=== PATIENT | female | born 1950 | race Asian ===

== ENCOUNTER 2023-05-14 06:08 | Day surgery (SDC) | payer MEDICARE, OTHER ==
[~2023-05-14] VITALS: Ht 157.5 cm; Wt 63.6 kg
[2023-05-14] MEDS ORDERED: FLUMAZENIL 0.1 MG/ML 5 ML VIAL IVP ONE (07:22)
[2023-05-14] MEDS ORDERED: SODIUM TETRADECYL SULFATE 3% 60 MG/2 ML VIAL IVP ONE (07:22)
[2023-05-14] MEDS ORDERED: EPINEPHrine 1:10,000 [1 MG/10 ML] SYRINGE ONE (07:22)
[2023-05-14] MEDS ORDERED: NALOXONE HCL 0.4 MG/ML VIAL ONE (07:22)
[2023-05-14] MEDS ORDERED: DiphenhydrAMINE HCL 50 MG/ML VIAL ONE (07:22)
[2023-05-14] MEDS ORDERED: ATROPINE SULFATE 0.1 MG/ML 10 ML SYRINGE IVP ONE (07:23)
[2023-05-14] MEDS ORDERED: SODIUM CHLORIDE 0.9% 1,000 ML ONE (07:53)
[2023-05-14] MEDS ORDERED: MIDAZOLAM HCL 2 MG/2 ML VIAL ONE (08:14)
[2023-05-14] MEDS ORDERED: FentaNYL CITRATE PF 100 MCG/2 ML VIAL ONE (08:14)
[2023-05-14 08:51] LABS: GLUCOMETER DEV NAME(LOC) SDS.; GLUCOSE,POINT OF CARE 110 MG/DL (70-110)
[2023-05-14] MEDS ORDERED: GLIP5TAB16 PO (08:58)
[2023-05-14] MEDS ORDERED: METF-1211 PO (08:58)
[2023-05-14] MEDS ORDERED: PIOG15TA6 PO (08:58)
[2023-05-14] MEDS ORDERED: ALOG25TA PO (08:58)
[2023-05-14] MEDS ORDERED: HYDR30CR3 TP (08:58)
[2023-05-14] MEDS ORDERED: LISI-892 PO (08:58)
[2023-05-14] MEDS ORDERED: OLOP5DRO27 OU (08:58)
[2023-05-14] MEDS ORDERED: CA C1TAB98 PO (08:58)
[2023-05-14] MEDS ORDERED: FAMO20 PO (08:58)
[2023-05-14] MEDS ORDERED: SEMA2PEN (08:58)
[2023-05-14] MEDS ORDERED: OMEG-61 PO (08:58)
[2023-05-14] MEDS ORDERED: ALBU18HF12 IH (08:58)
[2023-05-14] MEDS ORDERED: POTA8TAB71 PO (08:58)
[2023-05-14] MEDS ORDERED: CALC-1209 PO (08:58)
[2023-05-14] MEDS ORDERED: METO25 PO (08:58)
[2023-05-14] MEDS ORDERED: ASPI-1450 PO (08:58)
[2023-05-14] MEDS ORDERED: TAMO10TA45 PO (08:58)
[2023-05-14] MEDS ORDERED: ONDA-104 PO (08:58)
[2023-05-14] MEDS ORDERED: OXYB-34 PO (08:58)
[2023-05-14] MEDS ORDERED: ACET-3385 PO (08:58)
[2023-05-14] MEDS ORDERED: ATOR20TA PO (08:58)
[2023-05-14] MEDS ORDERED: MethylPREDNISolone SOD SUCC 125 MG/2 ML VIAL IVP ONE (09:15)
[2023-05-14 09:27] VITALS: PULSE 92; RESP 20; O2SAT 97
[2023-05-14] MEDS ORDERED: SODIUM CHLORIDE 0.9% 1,000 ML IV ONE (10:30)
[2023-05-14] MEDS ORDERED: LIDOCAINE 2% 11 ML JELLY ONE (14:48)
[2023-05-14] MEDS ORDERED: BENZOCAINE 20% 50 MCG/SPRAY 57 GM ONE (14:48)
[2023-05-14] MEDS ORDERED: LIDOCAINE 4% 50 ML SOLUTION ONE (14:48)
== END 2023-05-14 11:30 | disposition home or self-care (01) ==
LOC: SURGERY 06:08
PROVIDERS: ATTEND Internal Medicine Critical Care Medicine
DX: J38.4 Edema of larynx (principal); B37.0 Candidal stomatitis; I10 Essential (primary) hypertension; Z79.899 Other long term (current) drug therapy; Z98.890 Other specified postprocedural states
CPT/HCPCS: 31623; 88112; 82962; 87206; 87101; 87220; 87070; 88305; 31624; 71045; 87015; 93005; J3010; J2250; J2930; Q9967; J7030; J0171; J0461; J1200; J2310; J3490; Z7610

== ENCOUNTER 2025-03-23 05:45 | Day surgery (SDC) | payer MEDICARE, OTHER ==
[~2025-03-23] VITALS: Ht 157.5 cm; Wt 62.2 kg
[~2025-03-23 05:45] MED LIST: ACET-3385 PO; ALBU18HF12 IH; ALOG25TA PO; ASPI-1450 PO; ATOR20TA PO; CA C1TAB98 PO; CALC-1209 PO; FAMO20 PO; GLIP5TAB16 PO; HYDR30CR3 TP; LISI-892 PO; METF-1211 PO; METO25 PO; OLOP5DRO28 OU; OMEG-61 PO; ONDA-104 PO; OXYB-34 PO; PIOG15TA6 PO; POTA8TAB71 PO; SEMA2PEN; TAMO10TA45 PO
[2025-03-23] MEDS ORDERED: SODIUM CHLORIDE 0.9% 1,000 ML ONE (06:31)
[2025-03-23] MEDS: SODIUM CHLORIDE 0.9% 1,000 ML IV ONE (08:14)
[2025-03-23] MEDS ORDERED: FentaNYL CITRATE PF 100 MCG/2 ML VIAL ONE (08:29)
[2025-03-23] MEDS ORDERED: MIDAZOLAM HCL 2 MG/2 ML VIAL ONE (08:29)
[2025-03-23 08:46] LABS: GLUCOMETER DEV NAME(LOC) SDS.; GLUCOSE,POINT OF CARE 171 MG/DL (70-110)
[2025-03-23 09:25] VITALS: PULSE 70; RESP 16; O2SAT 100
[2025-03-23] MEDS ORDERED: DICL100G60 TP (10:41)
[2025-03-23] MEDS ORDERED: SITA100 PO (10:41)
[2025-03-23] MEDS ORDERED: ASCO100T12 PO (10:41)
[2025-03-23] MEDS ORDERED: LIDO1ADH83 TP (10:41)
[2025-03-23] MEDS ORDERED: INSU3INS3 SQ (10:41)
[2025-03-23] MEDS ORDERED: IPRA0.2S49 NEB (10:41)
[2025-03-23] MEDS ORDERED: LIDOCAINE 2% 11 ML JELLY ONE (12:00)
[2025-03-23] MEDS ORDERED: LIDOCAINE 4% 50 ML SOLUTION ONE (12:00)
[2025-03-23] MEDS ORDERED: BENZOCAINE 20% 50 MCG/SPRAY 57 GM ONE (12:00)
[2025-03-23] MEDS ORDERED: ALBUTEROL SULFATE 2.5 MG/0.5 ML NEB SOLUTION NEB ONE (12:00)
== END 2025-03-23 13:45 | disposition home or self-care (01) ==
LOC: SDS 05:45
PROVIDERS: ATTEND Internal Medicine Critical Care Medicine
DX: J38.4 Edema of larynx (principal); B37.0 Candidal stomatitis; J47.9 Bronchiectasis, uncomplicated; R05.3 Chronic cough; R06.2 Wheezing; R73.09 Other abnormal glucose
CPT/HCPCS: 31623; 82962; 87206; 87101; 87220; 87070; 88108; 31624; 94640; 71045; 87015; J3010; J2250; J2919; J7030; J7613; Z7610